=== PATIENT | female | born 1995 | race Caucasian/White ===

== ENCOUNTER 2024-08-28 14:19 | Outpatient (CLI) | payer BC, SELFPAY ==
--- NOTE | ~2024-08-28 | US_ITS ---
Pelvic ultrasound. Clinical History: First trimester , psoas dates and viability Technique: Realtime transabdominal and transvaginal scanning of the pelvis was performed. Color flow Doppler and Doppler spectral analysis were performed. Findings: The uterus is anteverted, and contains an intrauterine gestation with crown-rump length of 2.4 cm corresponds to an estimated gestational age of 9 weeks 1 day. heart rate is 163 bpm.. Neither ovary seen. No adnexal mass seen. There is no evidence of free fluid in the cul de sac. Impression: Live intrauterine gestation, with estimated gestational age of 9 weeks 1 day. heart rate is 163 bpm. Sonographic VINNY is 04/01/2025. Reviewed, dictated and finalized at location M. Impression: Live intrauterine gestation, with estimated gestational age of 9 weeks 1 day. F etal heart rate is 163 bpm. Sonographic VINNY is 04/01/2025.
== END 2024-08-28 14:20 | disposition home or self-care (01) ==
LOC: MICIMG 14:20
PROVIDERS: PCP Nurse Practitioner; Visit Provider Nurse Practitioner
DX: O36.80X0 Pregnancy with inconclusive fetal viability, not applicable or unspecified (principal); Z3A.00 Weeks of gestation of pregnancy not specified
CPT/HCPCS: 76801

== ENCOUNTER 2024-11-07 15:37 | Outpatient (CLI) | payer BC, SELFPAY ==
--- NOTE | ~2024-11-07 | US_ITS ---
EXAMINATION: US OB /maternal detail DATE: 11/08/2024 21:45 CDT INDICATION: Anatomy scan TECHNIQUE: Real-time transabdominal obstetric ultrasound. FINDINGS: 1 para 0 There is a single intrauterine gestation in variable presentation. The placenta is anterior. The tip of the placenta ranges from 4.2 cm to 5.6 cm away from the internal cervical os, as measured on the submitted images. The cervix measures 3.6 cm in length. cardiac activity and movement is noted with a heart rate of 161 beats per minute. Anatomic parameters are as follows The bladder is visualized and is unremarkable. A three-vessel cord is present. The cord inserts on the midline. Bilateral kidneys are present without hydronephrosis. The diaphragm is continuous. The cervical, thoracic and lumbar spines are covered in their entirety. The falx is visualized. choroid plexus is visualized (on cine views), and is unremarkable. Poor visualization of the lateral ventricles. Poor visualization of the cerebellum for which repeat examination is recommended. The cisterna magna measures 3.2 mm in anterior to posterior dimension (normal measurement is 2 to 10 mm). The nuchal fold measures 2.3 mm (greater than 6 mm is considered abnormal). Cine of the four-chamber heart is visualized and is anatomic. Both the right and left ventricular outflow tracts are identified and are unremarkable. Evaluation of the arms, hands, legs and feet were performed and appear grossly unremarkable. The upper lip and nose are continuous. The following biometric data were obtained: Biparietal diameter (BPD): 4.6 cm; head circumference (HC): 17.9 cm; abdominal circumference (AC): 16.1 cm; femur length (FL): 3.5 cm. These measurements are concordant. Estimated weight is 389.5 g +/- 58 g, which correlates with the greater than 97th percentile wh en 03/23/2025 is used as estimated date of delivery. As single measurements, these parameters are each equal to the following estimated gestational ages: BPD: 20 weeks 0 days. HC: 20 weeks 2 days. AC: 21 weeks 1 day. FL: 21 weeks 0 days. estimated gestational age based solely on measurements from this exam is 20 weeks 4 days +/- 1 week 3 days. IMPRESSION: Single intrauterine gestation with an approximate gestational age of 20 weeks and 4 days. Estimated d ue date by ultrasound is 03/23/2025. Poor visualization of the cerebellum and the lateral ventricles, for which repeat examination i s recommended. Reviewed, dictated and finalized at location A. IMPRESSION: Single intrauterine gestation with an approximate gestational age of 20 weeks a nd 4 days. Estimated due date by ultrasound is 03/23/2025. Poor visualization of the cerebellum and the lateral ventricles, for whic h repeat examination is recommended.
== END 2024-11-07 15:38 | disposition home or self-care (01) ==
LOC: MICIMG 15:38
PROVIDERS: PCP Obstetrics & Gynecology Gynecology; Visit Provider Obstetrics & Gynecology Gynecology
DX: Z36.9 Encounter for antenatal screening, unspecified (principal)
CPT/HCPCS: 76805

== ENCOUNTER 2024-11-24 09:58 | Outpatient (CLI) | payer BC, SELFPAY ==
[2024-11-24 10:10] VITALS: BMI 34.0
[2024-11-24 10:34] VITALS: BP 117/63; PULSE 76
[2024-11-24 10:46] VITALS: BP 114/55; PULSE 78
[2024-11-24 10:55] LABS: Basophils Absolute Auto 0.1 K/mm3 (0.0-0.1); Basophils Percent Auto 0.5 % (0.2-1.2); Eosinophils Absolute Auto 0.4 K/mm3 (0-0.3); Eosinophils Percent Auto 3.6 % (0-4.4); Hematocrit 38.1 % (37.0-47.0); Hemoglobin 12.2 g/dL (12.0-15.0); Immature Granulocyte Percent A 0.8 % (0-0.5); Lymphocytes Absolute Auto 2.25 K/mm3 (0.9-3.2); Mean Corpuscular Hemoglobin 28.2 pg (26-34); Mean Corpuscular Volume 88.2 fl (80-100); Monocytes Absolute Auto 0.8 K/mm3 (0.1-0.6); Monocytes Percent Auto 6.6 % (2.6-8.5); Neutrophils Absolute Auto 8.2 K/mm3 (1.3-6.7); Neutrophils Percent Auto 69.5 % (45.5-73.1); Platelet Count Result 315 k/mm3 (150-375); Red Blood Count 4.32 M/mm3 (4.2-5.4); Red Cell Distribution Width 12.7 % (11.5-14.5); White Blood Count 11.9 K/mm3 (4.5-10.0)
[2024-11-24 11:01] VITALS: BP 108/63; PULSE 75
[2024-11-24 11:05] LABS: Alanine Aminotransferase 16 U/L (6-35); Albumin Level 3.8 g/dL (3.5-5.1); Alkaline Phosphatase 83 U/L (38-126); Anion Gap 9 mmol/L (4-12); Aspartate Amino Transferase 22 U/L (14-36); Bilirubin,Total 0.2 mg/dL (0.2-1.3); Blood Urea Nitrogen 9 mg/dL (7-17); Calcium 9.3 mg/dL (8.4-10.2); Carbon Dioxide 20 mmol/L (22-30); Chloride 107 mmol/L (98-107); Estimated Glomerular Filt Rate > 60; Glucose 93 mg/dL (65-110); Sodium 136 mmol/L (137-145); Uric Acid 3.4 mg/dL (2.5-7.5)
[2024-11-24 11:07] LABS: Add Urine Microscopic? YES; Appearance Urine Clear (Clear); Bacteria Urine 1+ /hpf; Bilirubin Urine Negative (Negative); Blood Urine Negative (Negative); Color Urine Yellow (Yellow); Glucose Urine UA Negative (Negative); Ketones Urine Negative (Negative); Leukocyte Esterase Ur 1+ LEU/UL (Negative); Need Manual Microscopic Reviewed; Nitrate Urine Negative (Negative); Non Pathogenic Casts 0-2; Protein Urine Negative (Negative); RBC Urine 0-2 /hpf (0-2); Specific Grav Ur 1.017 (1.001-1.035); Squamous Epithelial Cell Urine Occasional /hpf (Few); WBC Urine 0-5 /hpf (0-3); pH Urine 6.5 (5.0-9.0)
[2024-11-24 11:16] VITALS: BP 110/49; PULSE 78
[2024-11-24 11:17] LABS: Creatinine Urine 82.2 mg/dL
[2024-11-24 11:23] LABS: Total Protein Urine Random < 5 mg/dL; Ur Ttl Prot Creatinine Ratio < 0.06 mg/mg (0-0.20)
--- NOTE | 2024-11-24 12:30 | PC.NURSE ---
[phone]-paged Dr. Tavera [phone]- paged Dr. Tavera.
--- NOTE | 2024-11-24 12:34 | PC.NURSE ---
Called Dr. Tavera with lab results and pt status. Pt states she saw spots in her vision yesterday x1 for 30-45 mins with none since. September D/C home.
== END 2024-11-24 12:38 | disposition home or self-care (01) ==
LOC: ANHOBOP 10:08 → ANHOBPP 10:19
PROVIDERS: Visit Provider Obstetrics & Gynecology Gynecology
DX: O13.9 Gestational [pregnancy-induced] hypertension without significant proteinuria, unspecified trimester (principal); Z3A.00 Weeks of gestation of pregnancy not specified
CPT/HCPCS: 36415; 80053; 81001; 82570; 84156; 84550; 85025; 87086; 99199

== ENCOUNTER 2025-03-06 15:43 | Outpatient (CLI) | payer BC, SELFPAY ==
[2025-03-06] VITALS (7 sets, daily range): BP systolic 111–122; BP diastolic 56–77; PULSE 65–81; BMI 42.2
--- OUTSIDE RECORDS SUMMARY | 2025-03-06 15:48 | XMS_ITS ---
Author Organization [facility] (ClinicalSummary Clone) Address Unknown Care Team Providers Care Car Changer Name Role Phone Unavailable Primary Care Physician Unavailab le Results * [[facility]] ANEUPLOIDY NIPT Performed by: [employer] Component Value Range Date Fraction 10.3% 10/09/2024 02 :32 am [facility] Sex Chromosome Aneuploidy NOT DETECTED 02:32 am [facility] Monosomy X LOW RISK <1 in 10,000 2024 02:32 am [facility] Trisomy 13 LOW RISK <1 in 10,000 2024 02:32 am [facility] Trisomy 18 LOW RISK <1 in 10,000 2024 02:32 am [facility] Trisomy 21 LOW RISK <1 in 10,000 2024 02:32 am [place] Sex MALE 10/09/2024 02:3 2 am [place] Gestation MCELROY 10/10/19 02:32 am [facility] For detailed report, see PDF See PDF 10/09/2024 02:32 am UTC 10/09/2024 02:3 2 am [facility] Social History Observation Value Start Date End Date
[2025-03-06 16:47] LABS: Hematocrit 37.2 % (37.0-47.0); Hemoglobin 11.6 g/dL (12.0-15.0); Immature Granulocyte Percent A 0.7 % (0-0.5); Lymphocytes Absolute Auto 2.31 K/mm3 (0.9-3.2); Mean Corpuscular HGB Conc 31.2 g/dl (32-36); Mean Corpuscular Hemoglobin 26.7 pg (26-34); Mean Corpuscular Volume 85.7 fl (80-100); Nucleated Red Blood Cells Absolute Auto 0.000 K/mm3 (0.0-0.012); Nucleated Red Blood Cells Perc 0.0 % (0.0-0.2); Platelet Count Result 318 k/mm3 (150-375); Red Blood Count 4.34 M/mm3 (4.2-5.4); White Blood Count 14.5 K/mm3 (4.5-10.0)
[2025-03-06 17:05] LABS: Add Urine Microscopic? NO; Appearance Urine Clear (Clear); Glucose Urine UA Negative (Negative); Leukocyte Esterase Ur Negative LEU/UL (Negative); Nitrate Urine Negative (Negative); Specific Grav Ur 1.017 (1.001-1.035)
[2025-03-06 17:09] LABS: Alanine Aminotransferase 12 U/L (6-35); Albumin Level 3.7 g/dL (3.5-5.1); Alkaline Phosphatase 171 U/L (38-126); Anion Gap 8 mmol/L (4-12); Aspartate Amino Transferase 27 U/L (14-36); Bilirubin,Total 0.4 mg/dL (0.2-1.3); Blood Urea Nitrogen 10 mg/dL (7-17); Calcium 9.1 mg/dL (8.4-10.2); Carbon Dioxide 21 mmol/L (22-30); Chloride 105 mmol/L (98-107); Estimated CRCL calculation 135 ml/min; Estimated Glomerular Filt Rate > 60; Glucose 70 mg/dL (65-110); Potassium 4.2 mmol/L (3.4-5.0); Sodium 134 mmol/L (137-145); Total Protein 7.2 g/dL (6.3-8.2); Uric Acid 5.6 mg/dL (2.5-7.5)
[2025-03-06 17:17] LABS: Total Protein Urine Random < 5 mg/dL; Ur Ttl Prot Creatinine Ratio < 0.06 mg/mg (0-0.20)
== END 2025-03-06 17:30 | disposition home or self-care (01) ==
LOC: ANHOBOP 15:47 → ANHOBPP 15:49
PROVIDERS: Visit Provider Obstetrics & Gynecology Gynecology
DX: O13.9 Gestational [pregnancy-induced] hypertension without significant proteinuria, unspecified trimester (principal); Z3A.00 Weeks of gestation of pregnancy not specified
CPT/HCPCS: 36415; 59025; 80053; 81003; 82570; 84156; 84550; 85025; 99199

== ENCOUNTER 2025-03-07 16:35 | Outpatient (CLI) | payer BC, SELFPAY ==
--- OUTSIDE RECORDS SUMMARY | 2025-03-07 16:48 | XMS_ITS | Clinical Summary ---
Author Organization [facility] Address [address] [facility] [address] [place] [phone] Phone Care Team Providers Care Status Controller Name Role Phone Jana Tavera MD Unavailable [phone] Rylie Valle NP Primary Care Provider [phone] Allergies Active Allergy Reactions Criticality Noted Date Comments Amoxicillin-Pot Clavulanate Hives Medium 07/06/2020 Codeine Shortness of breath Reaction: Trouble Breathing, Phentermine-Topiramate Other (See comments) Low Panic attack Medications ergocalciferol, vitamin D2, 50 mcg (2,000 unit) tablet Take by mouth Active cyanocobalamin (Vitamin B-12) 1,000 mcg tablet Take 1 tablet (1,000 mcg total) by mouth daily Active tirzepatide (MOUNJARO) 2.5 mg/0.5 mL pen injector Inject 0.5 mL (2.5 mg total) under the skin every 7 days Active dextroamphetamine- amphetamine XR (ADDERALL XR) 25 mg 24 hr capsuleIndications :Attention deficit hyperactivity disorder (ADHD), combined type Take 1 capsule (25 mg total) by mouth every morning 30 capsule 5 Active clobetasoL (TEMOVATE) 0.05 % external solutionIndication s:Psoriasis, unspecified Apply topically daily as needed (psoriasis) 50 mL 3 5 Active triamcinolone (KENALOG) 0.1 % creamIndications:P soriasis, unspecified APPLY TOPICALLY TO THE AFFECTED AREA 1 TO 2 TIMES DAILY NEEDED 15 g 3 5 Active busPIRone (BUSPAR) 15 mg tabletIndications: Generalized anxiety disorder Take 1 tablet (15 mg total) by mouth daily as needed (Anxiety) 90 tablet 3 5 Active valACYclovir (VALTREX) 1 gram tabletIndications: Recurrent cold sores TAKE 2 TABLETS(2000 MG) BY MOUTH TWICE DAILY FOR 1 DAY 4 tablet 3 5 Active Active Problems Problem Noted Date Diagnosed Date Psoriasis, unspecified 07/11/2024 Assessment & Plan (07/11/2024 7:59 AM COMPUTER NETWORK SUPPORT SPECIALIST): -chronic, stable -Discussed/ordered labs -continue on clobetasol 0.05% daily as needed on the scalp and triamcinolone 0.1% 1-2 times daily as needed it on the hands and elbows -Patient is no longer seeing Dermatology Dizzy 01/16/2024 Assessment & Plan (03/10/2024 2:23 PM CDT): -resolved -likely related to Mounjaro 5 mg weekly dosing when patient was not eating enough calories every day -follow up as needed Assessment & Plan (01/16/2024 2:22 PM CDT): -improving -likely related to Mounjaro 5 mg weekly dosing where patient was not eating enough calories every day -orthostatic blood pressures normal in office today -lab work ordered today -advised patient to increase water intake -advised patient to eat 3 meals a day with enough calories -follow up if this worsens 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 Assessment & Plan (07/11/2024 7:09 AM COMPUTER NETWORK SUPPORT SPECIALIST): -chronic, stable -Continue on valacyclovir 1 g 2 tablets twice daily for 1 day as needed Assessment & Plan (01/16/2024 2:21 PM CDT): -chronic, not at/near goal- patient had a recent outbreak that did not improve with the valacyclovir 1 g -increase to valacyclovir 1 g 2 tablets twice daily for 1 day Assessment & Plan (08/23/2023 10:12 AM CDT): -chronic, improving- patient had a recent outbreak -continue on valacyclovir 1 g daily for 5 days at 1st sign of outbreak Attention deficit hyperactiv ity disorder (ADHD), combined type 07/06/2022 Assessment & Plan (07/11/2024 7:09 AM COMPUTER NETWORK SUPPORT SPECIALIST): -chronic, stable -continue on adderall XR 25 mg daily Assessment & Plan (03/10/2024 2:22 PM CDT): -chronic, improving -continue on adderall XR 25 mg daily -follow up in 4 months for annual physical or sooner as needed Assessment & Plan (01/16/2024 2:20 PM CDT): -chronic, not at goal- patient has been feeling irritable -decrease to adderall XR 25 mg daily -follow up in 6 weeks or sooner as needed Assessment & Plan (08/23/2023 10:11 AM CDT): -chronic, stable -continue on adderall XR 25-30 mg daily (depending on what is in stock in the pharmacy). Assessment & Plan (06/13/2023 9:06 AM COMPUTER NETWORK SUPPORT SPECIALIST): -chronic, improving, but not at goal -Discussed/ordered labs -advised patient to continue on adderrall XR 20 mg every morning and let me know when she is out of this prescription and I will start her on Adderall XR 30 mg every morning Assessment & Plan (02/02/2023 8:03 AM CDT): Chronic problem-not at/near goal-poorly controlled at this time due to the patient being unable to obtain new refill on Adderall XR due to her insurance not covering We will stop the Adderall at this time and trial Wellbutrin Ordered Wellbutrin XL 150 mg -patient instructed to take 1 tablet by mouth every morning Patient educated on medication and side effects Follow-up in 3 weeks-to evaluate effectiveness of medication. Patient informed that if the medication is working but she feels that it may not be enough we will increase to 300 mg daily on week 5 Assessment & Plan (11/14/2022 3:01 PM CDT): -chronic, not at/near goal -patient states she recently picked up her new script of Adderall -advised patient to let me know at least 48 hours in advance of when she is due for her next refill and I will increase the Adderall XR to 30 mg daily. -follow up in 2 months Assessment & Plan (07/06/2022 8:20 AM COMPUTER NETWORK SUPPORT SPECIALIST): HPI: Condition is stable A&P: Discussed/ordered labs, encouraged healthy, low carbohydrate lifestyle and at least 150min/week of exercise, continue on adderall XR 20 mg daily. Polycystic ovarian syndrome 07/06/2022 Assessment & Plan (07/11/2024 7:50 AM COMPUTER NETWORK SUPPORT SPECIALIST): -chronic, stable -Continue seeing tool and fixture repairer Dr. Tavera. -reports she stopped taking the metformin and junel birthcontrol Assessment & Plan (06/13/2023 9:08 AM COMPUTER NETWORK SUPPORT SPECIALIST): -chronic, Condition is stable -Continue seeing tool and fixture repairer Dr. Tavera. -Continue on metformin XR 500 mg twice daily and junel control. -patient's insurance no longer covers Saxenda -start on Wegovy 0.25 mg injection weekly for weight loss. Patient denies personal/family history of pancreatitis or medullary thyroid cancer Assessment & Plan (02/02/2023 8:01 AM CDT): Chronic problem-worsening Patient is reporting a 5 lb weight gain since her last visit, reports her weight this morning was 219 lb Unable to obtain Liraglutide-patient waiting for a prior Auth to be done Following tool and fixture repairer Dr. Tavera-encouraged to follow-up as scheduled Continue on metformin XR 500 mg b.i.d. and Junel control Assessment & Plan (07/06/2022 8:39 AM COMPUTER NETWORK SUPPORT SPECIALIST): HPI: Condition is stable A&P: Continue seeing tool and fixture repairer Dr. Tavera. Continue on metformin XR 500 mg twice daily, Liraglutide 3 mg daily, and junel control. Vitamin B12 deficiency 07/06/2022 Assessment & Plan (07/11/2024 7:59 AM COMPUTER NETWORK SUPPORT SPECIALIST): -chronic, unknown, no data to review at this time to make an evaluation -Discussed/ordered labs -continue on vitamin daily Assessment & Plan (06/13/2023 9:08 AM COMPUTER NETWORK SUPPORT SPECIALIST): -chronic, Condition is unknown, no data to review at this time to make an evaluation -Discussed/ordered labs -continue on vitamin b12 1,000 mcg daily. Assessment & Plan (07/06/2022 8:40 AM COMPUTER NETWORK SUPPORT SPECIALIST): HPI: Condition is unknown, no data to review at this time to make an evaluation A&P: Discussed/ordered labs, encouraged healthy, low carbohydrate lifestyle and at least 150min/week of exercise, continue on vitamin b12 1,000 mcg daily. Skin mole 02/13/2022 Overview (02/13/2022): multiple skin moles with a new right trunk mole. see dermatology. monthly home skin exam Generalized anxiety disorder 01/13/2022 Assessment & Plan (07/11/2024 7:09 AM COMPUTER NETWORK SUPPORT SPECIALIST): -chronic, stable -continue on buspirone 7.5 mg twice daily Patient reiterated no suicidal thoughts at this time; take medication as directed; contact 911 and go to the ER if becomes suicidal; discussed side effects of medication with patient; encouraged healthy diet and exericise; encouraged patient to see a counselor Assessment & Plan (08/23/2023 10:11 AM CDT): -chronic, stable -continue on buspirone 7.5 mg twice daily Patient reiterated no suicidal thoughts at this time; take medication as directed; contact 911 and go to the ER if becomes suicidal; discussed side effects of medication with patient; encouraged healthy diet and exericise; encouraged patient to see a counselor Assessment & Plan (07/06/2022 8:19 AM COMPUTER NETWORK SUPPORT SPECIALIST): Patient reiterated no suicidal thoughts at this time; take medication as directed; contact 911 and go to the ER if becomes suicidal; discussed side effects of medication with patient; encouraged healthy diet and exericise; encouraged patient to see a counselor HPI: Condition is stable A&P: Discussed/ordered labs, encouraged healthy, low carbohydrate lifestyle and at least 150min/week of exercise, continue on buspirone 7.5 mg twice daily and adderall XR 20 mg daily. Overweight (BMI 25.0-29.9) 07/29/2019 Assessment & Plan (07/11/2024 7:48 AM COMPUTER NETWORK SUPPORT SPECIALIST): -chronic, stable goal BMI <30 Healthy, high-protein, lower carbohydrate, lower fat lifestyle and exercise for 150min/week recommended Recommend tracking everything you put in your mouth on an donna like [employer] -Patient has been taking tirzepatide injections 2.5 mg weekly with [employer]. Hand Measurements: A fist or cupped hand = 1 cup 1 cup = 1 -2 servings of fruit juice 1 oz. of cold cereal 2 oz. of cooked cereal, rice or pasta 8 oz. of milk or yogurt A thumb = 1 oz. of cheese Consuming low-fat cheese helps you meet the required servings from the milk, yogurt and cheese group. 1 oz. of low-fat cheese counts as 8 oz. of milk or yogurt. Handful = 1-2 oz. of snack food Thumb tip = 1 teaspoon Keep high-fat foods, such as peanut butter and mayonnaise, at a minimum. One teaspoon is equal to the end of your thumb, from the knuckle up. Three teaspoons equals 1 tablespoon. Palm = 3 oz. of meat Choose lean poultry, fish, shellfish and beef. One palm size portion equals 3 oz. for an adult and 1 -2 oz. for a child under 5. 1 tennis ball or a fist= 1/2 cup of fruit and vegetables Healthy diets include a variety of colorful fruits and vegetables every day. The secret to serving size is in your hand. Snacking can add up. Because hand sizes vary, compare your fist size to an actual measuring cup. Assessment & Plan (03/10/2024 2:22 PM CDT): -chronic, stable goal BMI <30 Healthy, high-protein, lower carbohydrate, lower fat lifestyle and exercise for 150min/week recommended Recommend tracking everything you put in your mouth on an donna like [employer] -Patient has been taking tirzepatide injections 2.5 mg weekly with [employer]. Hand Measurements: A fist or cupped hand = 1 cup 1 cup = 1 -2 servings of fruit juice 1 oz. of cold cereal 2 oz. of cooked cereal, rice or pasta 8 oz. of milk or yogurt A thumb = 1 oz. of cheese Consuming low-fat cheese helps you meet the required servings from the milk, yogurt and cheese group. 1 oz. of low-fat cheese counts as 8 oz. of milk or yogurt. Handful = 1-2 oz. of snack food Thumb tip = 1 teaspoon Keep high-fat foods, such as peanut butter and mayonnaise, at a minimum. One teaspoon is equal to the end of your thumb, from the knuckle up. Three teaspoons equals 1 tablespoon. Palm = 3 oz. of meat Choose lean poultry, fish, shellfish and beef. One palm size portion equals 3 oz. for an adult and 1 -2 oz. for a child under 5. 1 tennis ball or a fist= 1/2 cup of fruit and vegetables Healthy diets include a variety of colorful fruits and vegetables every day. The secret to serving size is in your hand. Snacking can add up. Because hand sizes vary, compare your fist size to an actual measuring cup. Assessment & Plan (01/16/2024 2:20 PM CDT): -chronic, improving goal BMI <30 Healthy, high-protein, lower carbohydrate, lower fat lifestyle and exercise for 150min/week recommended Recommend tracking everything you put in your mouth on an donna like [employer] -Patient has been taking tirzepatide injections 2.5 mg weekly with a [employer] [facility]. Patient tried a 5 mg dosage, but this made her dizzy because she was not eating enough Hand Measurements: A fist or cupped hand = 1 cup 1 cup = 1 -2 servings of fruit juice 1 oz. of cold cereal 2 oz. of cooked cereal, rice or pasta 8 oz. of milk or yogurt A thumb = 1 oz. of cheese Consuming low-fat cheese helps you meet the required servings from the milk, yogurt and cheese group. 1 oz. of low-fat cheese counts as 8 oz. of milk or yogurt. Handful = 1-2 oz. of snack food Thumb tip = 1 teaspoon Keep high-fat foods, such as peanut butter and mayonnaise, at a minimum. One teaspoon is equal to the end of your thumb, from the knuckle up. Three teaspoons equals 1 tablespoon. Palm = 3 oz. of meat Choose lean poultry, fish, shellfish and beef. One palm size portion equals 3 oz. for an adult and 1 -2 oz. for a child under 5. 1 tennis ball or a fist= 1/2 cup of fruit and vegetables Healthy diets include a variety of colorful fruits and vegetables every day. The secret to serving size is in your hand. Snacking can add up. Because hand sizes vary, compare your fist size to an actual measuring cup. Assessment & Plan (08/23/2023 10:10 AM CDT): HPI: Condition is improving, but not at goal goal BMI <30 A&P: Healthy, high-protein, lower carbohydrate, lower fat lifestyle and exercise for 150min/week recommended Recommend tracking everything you put in your mouth on an donna like [employer] -Patient has been taking tirzepatide injections 2.5 mg weekly with a med spa Hand Measurements: A fist or cupped hand = 1 cup 1 cup = 1 -2 servings of fruit juice 1 oz. of cold cereal 2 oz. of cooked cereal, rice or pasta 8 oz. of milk or yogurt A thumb = 1 oz. of cheese Consuming low-fat cheese helps you meet the required servings from the milk, yogurt and cheese group. 1 oz. of low-fat cheese counts as 8 oz. of milk or yogurt. Handful = 1-2 oz. of snack food Thumb tip = 1 teaspoon Keep high-fat foods, such as peanut butter and mayonnaise, at a minimum. One teaspoon is equal to the end of your thumb, from the knuckle up. Three teaspoons equals 1 tablespoon. Palm = 3 oz. of meat Choose lean poultry, fish, shellfish and beef. One palm size portion equals 3 oz. for an adult and 1 -2 oz. for a child under 5. 1 tennis ball or a fist= 1/2 cup of fruit and vegetables Healthy diets include a variety of colorful fruits and vegetables every day. The secret to serving size is in your hand. Snacking can add up. Because hand sizes vary, compare your fist size to an actual measuring cup. Assessment & Plan (06/13/2023 9:06 AM COMPUTER NETWORK SUPPORT SPECIALIST): HPI: Condition is not at/near goal goal BMI <30 A&P: Healthy, high-protein, lower carbohydrate, lower fat lifestyle and exercise for 150min/week recommended Recommend tracking everything you put in your mouth on an donna like [employer] -start on Wegovy 0.25 mg injection weekly for weight loss. Patient denies personal/family history of pancreatitis or medullary thyroid cancer Hand Measurements: A fist or cupped hand = 1 cup 1 cup = 1 -2 servings of fruit juice 1 oz. of cold cereal 2 oz. of cooked cereal, rice or pasta 8 oz. of milk or yogurt A thumb = 1 oz. of cheese Consuming low-fat cheese helps you meet the required servings from the milk, yogurt and cheese group. 1 oz. of low-fat cheese counts as 8 oz. of milk or yogurt. Handful = 1-2 oz. of snack food Thumb tip = 1 teaspoon Keep high-fat foods, such as peanut butter and mayonnaise, at a minimum. One teaspoon is equal to the end of your thumb, from the knuckle up. Three teaspoons equals 1 tablespoon. Palm = 3 oz. of meat Choose lean poultry, fish, shellfish and beef. One palm size portion equals 3 oz. for an adult and 1 -2 oz. for a child under 5. 1 tennis ball or a fist= 1/2 cup of fruit and vegetables Healthy diets include a variety of colorful fruits and vegetables every day. The secret to serving size is in your hand. Snacking can add up. Because hand sizes vary, compare your fist size to an actual measuring cup. Assessment & Plan (02/02/2023 8:05 AM CDT): Chronic [id number] reported by patient she had a 5 lb weight gain Has not started Saxenda yet, patient states she is waiting on prior authorization to see if her insurance will cover Recommend heart healthy [id number], low-calorie, low carb Portion control would be beneficial Encouraged to increase activity to 30 min/day, 150 min/week Recommend keeping a food journal Assessment & Plan (11/14/2022 2:57 PM CDT): HPI: Condition is not at/near goal goal BMI <30 A&P: Healthy, high-protein, lower carbohydrate, lower fat lifestyle and exercise for 150min/week recommended Recommend tracking everything you put in your mouth on an donna like [employer] -continue on liraglutide 3 mg daily injection. Hand Measurements: A fist or cupped hand = 1 cup 1 cup = 1 -2 servings of fruit juice 1 oz. of cold cereal 2 oz. of cooked cereal, rice or pasta 8 oz. of milk or yogurt A thumb = 1 oz. of cheese Consuming low-fat cheese helps you meet the required servings from the milk, yogurt and cheese group. 1 oz. of low-fat cheese counts as 8 oz. of milk or yogurt. Handful = 1-2 oz. of snack food Thumb tip = 1 teaspoon Keep high-fat foods, such as peanut butter and mayonnaise, at a minimum. One teaspoon is equal to the end of your thumb, from the knuckle up. Three teaspoons equals 1 tablespoon. Palm = 3 oz. of meat Choose lean poultry, fish, shellfish and beef. One palm size portion equals 3 oz. for an adult and 1 -2 oz. for a child under 5. 1 tennis ball or a fist= 1/2 cup of fruit and vegetables Healthy diets include a variety of colorful fruits and vegetables every day. The secret to serving size is in your hand. Snacking can add up. Because hand sizes vary, compare your fist size to an actual measuring cup. Assessment & Plan (07/06/2022 8:38 AM COMPUTER NETWORK SUPPORT SPECIALIST): HPI: Condition is not at/near goal goal BMI <30 A&P: Healthy, high-protein, lower carbohydrate, lower fat lifestyle and exercise for 150min/week recommended Recommend tracking everything you put in your mouth on an donna like [employer] Patient uses liraglutide 3 mg daily injection. Patient has used wegovy in the past, but it did not help with her weight loss. Hand Measurements: A fist or cupped hand = 1 cup 1 cup = 1 -2 servings of fruit juice 1 oz. of cold cereal 2 oz. of cooked cereal, rice or pasta 8 oz. of milk or yogurt A thumb = 1 oz. of cheese Consuming low-fat cheese helps you meet the required servings from the milk, yogurt and cheese group. 1 oz. of low-fat cheese counts as 8 oz. of milk or yogurt. Handful = 1-2 oz. of snack food Thumb tip = 1 teaspoon Keep high-fat foods, such as peanut butter and mayonnaise, at a minimum. One teaspoon is equal to the end of your thumb, from the knuckle up. Three teaspoons equals 1 tablespoon. Palm = 3 oz. of meat Choose lean poultry, fish, shellfish and beef. One palm size portion equals 3 oz. for an adult and 1 -2 oz. for a child under 5. 1 tennis ball or a fist= 1/2 cup of fruit and vegetables Healthy diets include a variety of colorful fruits and vegetables every day. The secret to serving size is in your hand. Snacking can add up. Because hand sizes vary, compare your fist size to an actual measuring cup. Vitamin D deficiency Assessment & Plan (07/11/2024 7:59 AM COMPUTER NETWORK SUPPORT SPECIALIST): -chronic, unknown, no data to review at this time to make an evaluation -Discussed/ordered labs -continue on vitamin daily Assessment & Plan (06/13/2023 9:08 AM COMPUTER NETWORK SUPPORT SPECIALIST): -chronic, Condition is unknown, no data to review at this time to make an evaluation -Discussed/ordered labs -continue on vitamin D 2000 units daily Assessment & Plan (07/06/2022 8:38 AM COMPUTER NETWORK SUPPORT SPECIALIST): HPI: Condition is unknown, no data to review at this time to make an evaluation A&P: Discussed/ordered labs, encouraged healthy, low carbohydrate lifestyle and at least 150min/week of exercise, continue on vitamin D2 2000 units daily Estimated Date of Delivery Comme nts Yes 04/04/2025 Resolved Problems Problem Noted Date Diagnosed Date Resolved Date Attention deficit disorder 01/13/2022 0 02/13/2022 Morbid obesity with BMI of 40.0-44.9, adult 01/08/2021 06/15/2021 Recurrent UTI 01/30/2017 07/06/2022 Assessment & Plan (01/30/2017 8:20 PM CDT): Currently without symptoms despite her urine being positive today. Will send for culture. If culture negative-will arrange US of kidneys. Obesity (BMI 30-39.9) 01/30/20172022 Assessment & Plan (01/30/2017 8:20 PM CDT): Obesity is unchanged. Discussed the patient's BMI. The BMI is above average; BMI management plan is completed. General weight loss/lifestyle modification strategies discussed (elicit support from others; identify saboteurs; non-food rewards, etc). Jaw pain 09/09/2014 08/10/2021 Overview (08/31/2016): Jaw pain Encounters Date Type Department Care Team Description 02/04/2025 2:00 PM CDT Ancillary Procedure [facility] [address] [facility] [address] [place] [id number] Maternal care for excessive growth, third trimester, not applicable or unspecified from Last 3 Months Immunizations Immunization Administration Dates Next Due DTaP, Unspecified 12/17/1998, 6,07/15/1994,04/28,02/24/1994 Flucelvax Influenza Quad 04/05/2019 HPV, Quadrivalent 12/15/2011,03/07/2011 HPV, Unspecified 12/15/2010 Hep A, Unspecified 2007,01/15/2007 Hep B, Unspecified 07/15/1994,01/27/1994, 994 HiB 03/31/1995,04/28/1994,02/24/1994 Influenza, Quadrivalent, Spl it, Preservative Free, Intramuscular 06/13/2023,02/13/2022,03/15/2021 Influenza, Trivalent, Preser vative Free, Intramuscular 03/10/2024 Influenza, Unspecified 03/28/2020 Meningococcal ACWY, Unspecified 01/15/2007 Meningococcal Conjugate (Menveo) 12/15/2011 Moderna SARS-CoV-2 Monovalen t Vaccination (12+ YRS) 04/03/2021,03/29/2021 Polio, Unspecified 12/17/1998, 6,04/28/1994,02/24 Tdap 06/03/2019,01/15/2007 Varicella 2007 Surgical History Surgery Date Site/Laterality Comments NO PAST SURGERIES Medical History Medical History Date Comments PCOS (polycystic ovarian syndrome) Vitamin D deficiency Anxiety Attention deficit disorder 01/13/2022 Family History Medical History Relation Name Comments Diabetes Father Yg Hyperlipidemia Father Yg Hyperlipidemi a; Hypertension Father Yg Other Father Yg Alive and well; /borderline diabetic; Heart disease Maternal Grandfather César Cancer Maternal Grandmother Mary Arthritis Mother Ana Hypertension Mother Ana Hypertension; Diabetes Mother's Brother Bharat Diabetes Other 1 Family history of Diabetes mellitus; Heart disease Other 2 Family history of Heart disease; Depression Paternal Grandmother Luna Mental illness Paternal Grandmother Luna Relation Name Status Comments Father Yg Alive Maternal Grandfather César Maternal Grandmother Mary Mother Ana Mother's Brother Bharat Other 1 Other 2 Paternal Grandmother Luna Social History Tobacco Use Types Packs/Day Years Used Date Smoking Tobacco: Never Smokeless Tobacco: Never Tobacco Cessation:Counseling Given: Not Answered Alcohol Use Standard Drinks/Week Comments Yes 0 (1 standard drink = 0.6 oz pur e alcohol) AUDIT-C Answer Date Recorded Q1: How often do you have a drink containing alc ohol? 2-4 times a month 07/11/2024 Q2: How many drinks containi ng alcohol do you have on a typical day when you are drinking? 3 or 4 07/11/2024 Q3: How often do you have si x or more drinks on one occasion? 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 Not on file Not on file Obstetrics History Para Term AB IAB SAB Ectopic Multiple Livin g Live Births 1 Date Outcome GA Total Labor Labor/2nd/3rd Weight Sex Type Anes PTL Candy A1 A5 Name Clin Current Last Filed Vital Signs Vital Sign Reading Time Taken Comments Blood Pressure 110/56 10/21/2024 11:52 AM CDT Pulse 74 10/21/2024 11:52 AM CDT Temperature 36.6 C (97.9 F) 10/21/2024 11:52 AM CDT Respiratory Rate 16 10/21/2024 11:52 AM CDT Oxygen Saturation 98% 10/21/2024 11:52 AM CDT Inhaled Oxygen Concentration - - Weight 99.3 kg (219 lb) 10/21/2024 11:52 AM CDT Height 171.2 cm (5' 7.4) 10/21/2024 11:52 AM CD T Body Mass Index 33.89 10/21/2024 11:52 AM CDT Plan of Treatment Health Maintenance Due Date Last Done Comments Cervical Cancer Screening 1993 Hepatitis C Screening 1993 Covid-19 Vaccine ( season) 2025 04/03/2021, 03/29/2021, 07/30/2020 Influenza Vaccine (#1) 2025 , 06/13/2023, 02/13/2022, Additional history exists Depression Screening 07/11/2025 07/11/2024, 03/10/2024, 01/16/2024, Additional history exists Regular Well Visit/Exam 18-64 07/11/2025 07/11/2024, 11/14/2022, 08/10/2021, Additional history exists DTaP/Tdap/Td Vaccine (8 - Td or Tdap) 06/03/2029 06/03/2019, 01/15/2007, 12/17/1998, Additional history exists Hepatitis B Screening Completed 07/15/1994 , 01/27/1994, 1993 Varicella Vaccines Discontinued 2007 HPV Vaccines Completed 12/15/2011, 02/25, 12/15/2010 Pneumococcal vaccine <65 Aged Out No longer eligible based on patient's age to complete this topic Procedures Procedure Name Priority Date/Time Associated Diagnosis Comments US OB FOLLOW UP Schedule Routine, Read Routine (OP Routine) 02/04/2025 2:15 PM CDT Maternal care for excessive growth, third trimester, not applicable or unspecified from Last 3 Months Results * US Ob Follow Up (02/04/2025 2:15 PM CDT) Anatomical Region Laterality Modality Abdomen N/A Ultrasound 02/11/2025 8:05 AM CDT Narrative 02/11/2025 8:10 AM CDT EXAM DESCRIPTION: US OB FOLLOW UP REASON FOR STUDY: maternal care for excessive growth Maternal care for excessive growth - check growth and genaro TECHNIQUE: Limited transabdominal grayscale ultrasound for obstetrical evaluation. COMPARISON: None. FINDINGS: Clinical age is 31 weeks 4 days with an VINNY 04/04/2025. Single intrauterine with cephalic presentation. Placenta is anterior with no demonstrated placenta previa. Amniotic fluid index 13.3 cm. heart rate 136 beats per minute. BPD is 8.89 cm corresponding to 36 weeks 0 days. HC is 31.13 cm corresponding to 34 weeks 6 days. AC is 30.36 cm corresponding to 34 weeks 2 days. FL is 6.40 cm corresponding to 33 weeks 0 days. The growth ratios are all in the normal range. The estimated age based on this ultrasound is 33 weeks 6 days with an VINNY 03/19/2025. Estimated weight 2368 g +/-355 g (5 pounds 4 ounces +/-13 ounces) which is at the 97th percentile. IMPRESSION: 1. Single intrauterine estimated at 33 weeks 6 days with an VINNY 03/19/2025. The clinical age is reported to be 31 weeks 4 days. 2. Estimated weight at the 97th percentile which reflects the discrepancy in dating. 3. The BPD does measure greater than the other growth measures although the growth ratios remain normal. 4. Amniotic fluid index 13.3 cm. THIS IS AN ELECTRONICALLY VERIFIED FINAL REPORT 02/11/2025 8:10 AM - Electronically signed by Fan Wolf M.D. CH: JUSTIN Report ID: [id number] Reading Location: [id number] Procedure Note Fan Wolf MD - 02/11/2025 EXAM DESCRIPTION: US OB FOLLOW UP REASON FOR STUDY: maternal care for excessive growth Maternal care for excessive growth - check growth and genaro TECHNIQUE: Limited transabdominal grayscale ultrasound for obstetrical evaluation. COMPARISON: None. FINDINGS: Clinical age is 31 weeks 4 days with an VINNY 04/04/2025. Single intrauterine with cephalic presentation. Placenta is anterior with no demonstrated placenta previa. Amniotic fluid index 13.3 cm. heart rate 136 beats per minute. BPD is 8.89 cm corresponding to 36 weeks 0 days. HC is 31.13 cm corresponding to 34 weeks 6 days. AC is 30.36 cm corresponding to 34 weeks 2 days. FL is 6.40 cm corresponding to 33 weeks 0 days. The growth ratios are all in the normal range. The estimated age based on this ultrasound is 33 weeks 6 days with an VINNY 03/19/2025. Estimated weight 2368 g +/-355 g (5 pounds 4 ounces +/-13 ounces)which is at the 97th percentile. IMPRESSION: 1. Single intrauterine estimated at 33 weeks 6 days with anEDD 03/19/2025. The clinical age is reported to be 31 weeks 4 days. 2. Estimated weight at the 97th percentile which reflects the discrepancy in dating. 3. The BPD does measure greater than the other growth measures althoughthe growth ratios remain normal. 4. Amniotic fluid index 13.3 cm. THIS IS AN ELECTRONICALLY VERIFIED FINAL REPORT 02/11/2025 8:10 AM - Electronically signed by Fan Wolf M.D. CH: Report ID: [id number] Reading Location: [place] [id number] us Isabella Godinez NP IMG OB US PROCEDURES Final Result from Last 3 Months Insurance [facility] CHOICE PLUS [facility] CHOICE PLUS ANTHEM ACCESS Care Teams Status Controller Relationship Specialty Start Date End Date Rylie Valle NP [address] [facility] [address] [place] [address] PCP - General Family Medicine 07/06/22 Jana Tavera MD [address] [place], [place] [id number] Referring Physician Gynecology 06/03/19
--- OUTSIDE RECORDS SUMMARY | 2025-03-07 16:48 | XMS_ITS ---
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 Component Value Range Date Fraction 7.9% 10/22/2024 04 :33 pm [facility] Cystic Fibrosis NIPT result LOW RISK 1 in 4500 10/22/2024 04:33 pm [facility] Sickle Cell Disease/Beta-Thalassemia/Hemo globinopathies carrier screen NEGATIVE 10/22/2024 04:33 pm [facility] Alpha-Thalassemia carrier screen NEGATIVE 10/22/2024 04:33 pm [facility] Cystic Fibrosis carrier screen POSITIVE [id number] 10/22/2024 04:33 pm [facility] Spinal Muscular Atrophy carrier screen NEGATIVE 2 SMN1 copies, SNP not present 10/22/2024 04:33 pm [facility] For detailed report, see PDF See PDF 10/22/2024 04:33 pm UTC 10/22/2024 04:3 3 pm [facility] Social History Observation Value Start Date End Date
[2025-03-07 16:49] VITALS: BMI 42.2
[2025-03-07 17:04] LABS: Total Volume 24 Hour Urine 1500 ml
[2025-03-07 17:09] LABS: Creatinine Clearance Urine 102.1 ml/min (75-125); Serum Creat 0.73
[2025-03-07 17:18] LABS: Total Protein Urine 24 Hr 75 mg/24hr (28-141); Total Protein Urine Random < 5 mg/dL
== END 2025-03-07 16:36 | disposition home or self-care (01) ==
LOC: ANHOBOP 16:46
PROVIDERS: Visit Provider Obstetrics & Gynecology Gynecology
DX: O12.10 Gestational proteinuria, unspecified trimester (principal); Z3A.00 Weeks of gestation of pregnancy not specified
CPT/HCPCS: 81050; 82575; 84156

== ENCOUNTER 2025-03-15 07:19 | Inpatient (IN) | payer BC, SELFPAY ==
[2025-03-15] VITALS (96 sets, daily range): BP systolic 76–149; BP diastolic 29–131; PULSE 60–138; TEMP 36.1–36.8; O2SAT 94–100; BMI 34.5
[2025-03-15 07:50] LABS: OBXCEM ROM Plus Positive (Negative)
--- NOTE | 2025-03-15 08:24 | LDADM ---
This patient, Kelly Calderon, was admitted to Labor/Delivery/Recovery 104 on 03/15/25 at 07:19. Plans for labor, pain management and were discussed with patient. Patient/family oriented to hospital policies and general routines including ID bracelet, bed and alarms, visiting hours, pain management, procedures, bathroom and other care routines, personal items, smoking policy, room service/diet and guest tray routines, infant security routines, and visiting hours. Patient/Family are encouraged to report perceived risks to care and to ask questions if they do not understand what they are told or what they should do. See OBIX for further documentation.
[2025-03-15 09:33] LABS: Hematocrit 36.0 % (37.0-47.0); Hemoglobin 11.7 g/dL (12.0-15.0); Immature Granulocyte Percent A 0.6 % (0-0.5); Lymphocytes Absolute Auto 2.36 K/mm3 (0.9-3.2); Mean Corpuscular HGB Conc 32.5 g/dl (32-36); Mean Corpuscular Hemoglobin 27.5 pg (26-34); Mean Corpuscular Volume 84.7 fl (80-100); Nucleated Red Blood Cells Absolute Auto 0.000 K/mm3 (0.0-0.012); Nucleated Red Blood Cells Perc 0.0 % (0.0-0.2); Platelet Count Result 290 k/mm3 (150-375); Red Blood Count 4.25 M/mm3 (4.2-5.4); White Blood Count 11.7 K/mm3 (4.5-10.0)
[2025-03-15] MEDS: OXYTOCIN 30 UNITS/NS 500 ML 30 UNITS/500 ML BAG IV CONT (09:50)
[2025-03-15] MEDS: LACTATED RINGERS 1,000 ML 125 ML IV CONT ×3 (09:50→16:27)
[2025-03-15 10:31] LABS: Syphilis IgG/IgM Antibody Non-Reactive (Nonreactive)
[2025-03-15 10:37] LABS: HIV 1/2 Ab P24 Ag Result Negative (Negative)
--- NOTE | 2025-03-15 12:24 | WPDANESEPPF ---
Anes - Initial Pre Proc Eval Procedure: labor epidural Date/Time: 03/15/25 12:24 Surgeon: Jana Tavera MD Pre Op Diagnosis: labor pain Pre Op Diagnosis: Rupture of Membranes Patient Data Age: 29 Gender: F Height: Weight: Last Vital Signs Temp 36.7 C 03/15/25 10:41 Pulse 77 03/15/25 12:01 BP 131/83 03/15/25 12:01 O2 Del Method Room Air 03/15/25 08:23 Allergies Allergy/AdvReac Type Severity Reaction Status Date / Time amoxicillin Allergy Mild Rash Verified 03/15/25 08:25 codeine Allergy Unknown Dyspnea / Verified 03/15/25 08:25 SOB Home Medications ?Medication ?Instructions ?Recorded ?Confirmed ?Type aspirin 81 mg tablet,delayed 81 mg PO DAILY 03/15/25 03/15/25 History release (Adult Aspirin Regimen) calcium phosphate,dibasic 77 tablet PO 03/15/25 History mg-vitamin D3 400 unit tablet cetirizine 10 mg tablet (24Hour 10 mg PO .nightly PRN allergy 03/15/25 03/15/25 History Allergy) symptoms vitamins no.102-iron 90 1 cap PO DAILY 03/15/25 03/15/25 History mg-folate 1 mg-dha 200 mg capsule Laboratory Tests 03/15/25 03/15/25 07:48 08:17 WBC 11.7 H K/mm3 (4.5-10.0) RBC 4.25 M/mm3 (4.2-5.4) Hgb 11.7 L g/dL (12.0-15.0) Hct 36.0 L % (37.0-47.0) MCV 84.7 fl (80-100) MCH 27.5 pg (26-34) MCHC 32.5 g/dl (32-36) RDW 13.3 % (11.5-14.5) Plt Count 290 k/mm3 (150-375) MPV 12.1 H fl (7.4-10.4) Immature Gran % (Auto) 0.6 H % (0-0.5) Neut % (Auto) 69.3 % (45.5-73.1) Lymph % (Auto) 20.1 % (18.3-44.2) Woodson % (Auto) 7.8 % (2.6-8.5) Eos % (Auto) 1.8 % (0-4.4) Baso % (Auto) 0.4 % (0.2-1.2) Lymph # (Auto) 2.36 K/mm3 (0.9-3.2) Woodson # (Auto) 0.9 H K/mm3 (0.1-0.6) Eos # (Auto) 0.2 K/mm3 (0-0.3) Baso # (Auto) 0.1 K/mm3 (0.0-0.1) Abs Immat Gran (auto) 0.07 H K/mm3 (0.00-0.031) Absolute Neuts (auto) 8.1 H K/mm3 (1.3-6.7) Absolute Nucleated RBC 0.000 K/mm3 (0.0-0.012) Nucleated RBC % 0.0 % (0.0-0.2) Membranes Rupture Rom plus positive (Negative) Syphilis IgG/IgM Ab Non-reactive (Nonreactive) HIV 1&2 Ab/P24 Ag 4thGn Negative (Negative) Blood Type A Positive Antibody Screen Negative Patient hx anesthesia problems: none Family hx anesthesia problems: none Results Review: All pre-operative results and documents have been reviewed as part of the pre-operative evaluation. [facility] Past Medical History Medical History (Updated 03/15/25 @ 12:25 by Jenae Regalado CRNA) ADHD Anxiety Psoriasis PCOS (polycystic ovarian syndrome) Social History Social History Smoking status: Never smoker Substance use: never Do You Feel Safe in your Home?: Yes Lack of Transportation: No Lack of Food: Never True Current Housing: I Have Housing Concerned About Future Housing: No Difficulty Paying Gas/Electric Bills: No Difficulty Paying for Meds: No Currently Unemployed: No Education: Trade/Vocational Certificate Difficulty w/ Childcare or Family Care: No Spiritual care concerns: No Anes - Eval Final PreProcedure Day of Procedure 03/15/25 12:24 Heart: regular rate and rhythm Lungs: clear to auscultation and normal air movement Airway: Mallampati scale class II Neurological: alert and oriented ASA classification: II Emergent: no Anesthetic plan: proceed Anesthesia type and monitoring: regional epidural and standard monitoring Results Review: All pre-operative results and documents have been reviewed as part of the pre-operative evaluation. Informed Consent: The patient's anesthetic plan and its attendant risks and benefits were discussed with the patient/family/POA. Questions were solicited and answers provided to the satisfaction of the patient/family/POA.
--- NOTE | 2025-03-15 13:44 | PM.IMHP ---
H&P: HPI History of Present Illness Date/Time: 03/15/25 13:44 Chief Complaint: Therese rupture membranes at term at 5:30 a.m. Narrative: This is a 29-year-old 1 para 0 with last menstrual period was 06/28/2024, EDC is 04/04/2025, presents at 37 and half weeks gestation with spontaneous rupture membranes prior to admission. She tells me the baby than the 97th percentile. She is negative for group B strep and passed her diabetic screening Review of Systems Review of Systems: All systems reviewed & are unremarkable except as noted in HPI and below PMFSH Past Medical History Medical History ADHD Anxiety Psoriasis PCOS (polycystic ovarian syndrome) Social History Social History Smoking status: Never smoker Substance use: never Do You Feel Safe in your Home?: Yes Lack of Transportation: No Lack of Food: Never True Current Housing: I Have Housing Concerned About Future Housing: No Difficulty Paying Gas/Electric Bills: No Difficulty Paying for Meds: No Currently Unemployed: No Education: Trade/Vocational Certificate Difficulty w/ Childcare or Family Care: No Spiritual care concerns: No Meds Home Medications and Allergies Home Medications ?Medication ?Instructions ?Recorded ?Confirmed ?Type aspirin 81 mg tablet,delayed 81 mg PO DAILY 03/15/25 03/15/25 History release (Adult Aspirin Regimen) calcium phosphate,dibasic 77 tablet PO 03/15/25 History mg-vitamin D3 400 unit tablet cetirizine 10 mg tablet (24Hour 10 mg PO .nightly PRN allergy 03/15/25 03/15/25 History Allergy) symptoms vitamins no.102-iron 90 1 cap PO DAILY 03/15/25 03/15/25 History mg-folate 1 mg-dha 200 mg capsule Allergies Allergy/AdvReac Type Severity Reaction Status Date / Time amoxicillin Allergy Mild Rash Verified 03/15/25 08:25 codeine Allergy Unknown Dyspnea / Verified 03/15/25 08:25 SOB Vital Signs Vital Signs - 24 hr 03/15/25 07:48 03/15/25 08:01 03/15/25 08:23 Temperature Pulse Rate 91 73 Blood Pressure 88/63 L 111/67 Pulse Oximetry Oxygen Delivery Room Air 03/15/25 09:01 03/15/25 09:16 03/15/25 09:31 Temperature Pulse Rate 90 97 91 Blood Pressure 122/70 117/74 121/72 Pulse Oximetry Oxygen Delivery 03/15/25 09:46 03/15/25 10:01 03/15/25 10:16 Temperature Pulse Rate 98 83 82 Blood Pressure 113/65 128/69 114/70 Pulse Oximetry Oxygen Delivery 03/15/25 10:31 03/15/25 10:41 03/15/25 10:47 Temperature 98.1 F Pulse Rate 86 77 Blood Pressure 117/66 102/43 L Pulse Oximetry Oxygen Delivery 03/15/25 11:02 03/15/25 11:05 03/15/25 11:17 Temperature Pulse Rate 73 73 71 Blood Pressure 98/39 L 132/70 117/66 Pulse Oximetry Oxygen Delivery 03/15/25 11:31 03/15/25 11:46 03/15/25 12:01 Temperature Pulse Rate 81 83 77 Blood Pressure 123/67 113/61 131/83 Pulse Oximetry Oxygen Delivery 03/15/25 12:31 03/15/25 12:46 03/15/25 13:02 Temperature Pulse Rate 103 H 93 101 H Blood Pressure 132/86 115/72 100/48 L Pulse Oximetry Oxygen Delivery 03/15/25 13:16 03/15/25 13:34 03/15/25 13:39 Temperature Pulse Rate 78 Blood Pressure 117/56 L Pulse Oximetry 99 99 Oxygen Delivery Exam Const: General: cooperative, healthy appearing, comfortable and well groomed Nutritional Appearance: overweight HENMT: Head: normal to inspection Resp: Effort & Inspection: normal respiratory effort Cardio: Rate: regular rate Rhythm: regular rhythm Heart sounds: S1 normal heart sound present and S2 normal heart sound present GI: Inspection: normal to inspection (Gravid soft uterus) : External Female Exam: normal external appearance Speculum Exam - Vagina: normal appearance of the vagina Speculum Exam - Cervix: normal appearance of the cervix (Cervix / FHTs reassuring. IUPC and FSE placed) H&P: Results Labs Labs: Short CBC 03/15/25 Range/Units 08:17 WBC 11.7 H (4.5-10.0) K/mm3 Hgb 11.7 L (12.0-15.0) g/dL Hct 36.0 L (37.0-47.0) % Plt Count 290 (150-375) k/mm3 Assessment and Plan Assessment and plan (1) Term : Code(s): Z34.90 - Encounter for supervision of normal , unspecified, unspecified trimester Status: Acute (2) Spontaneous rupture of membranes: Status: Acute Plan Pitocin has been placed. Spontaneous vaginal expected. She is an epidural candidate
[2025-03-15] MEDS: ACETAMINOPHEN 325 MG TABLET 650 MG PO (15:38)
[2025-03-15] MEDS: ONDANSETRON INJ 4 MG/2 ML VIAL IV PUSH (15:57)
[2025-03-15] MEDS: LORATADINE 10 MG TABLET PO (17:26)
[2025-03-15] MEDS: CALCIUM CARBONATE (TUMS) 500 MG (200 MG ELEMENTAL) PO (19:54)
[2025-03-15] MEDS: SODIUM CHLORIDE 0.9% IV 300 ML 600 ML I-UTERINE (19:55)
[2025-03-16] VITALS (20 sets, daily range): BP systolic 103–135; BP diastolic 42–88; PULSE 61–127; RESP 14–16; TEMP 36.1–37.3; O2SAT 96–99
[2025-03-16] MEDS: LACTATED RINGERS 1,000 ML 125 ML IV CONT (00:20)
--- NOTE | 2025-03-16 00:49 | P.PCNOB_ITS ---
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 Anterior posterior shoulder delivered spontaneously. Cord clamped and cut and passed off table given Apgars of 7 [id number] 8 [id number]. Cord blood was drawn. Placenta delivered intact spontaneously. Twenty of Pitocin placed IV to help firm the uterus. After inspecting the vagina. The vagina was noted to have a second-degree laceration which did not extend. This was closed with layered 3-0 Vicryl. Patient tolerated procedure well QBL was 62cc. All sponge, needle, instrument counts were correct. There were no immediate complications [place] Baby Date of : 03/16/25 Time of : 00:35 Gestational Age by Date: 37 Infant gender: Male presentation: vertex position: Right Occiput Anterior Placenta delivery description: Spontaneous Cord Vessel Description: 3 Vessels score one minute: 7 score five minutes: 8
[2025-03-16] MEDS: OXYTOCIN 30 UNITS/NS 500 ML 30 UNITS/500 ML BAG 125 UNITS IV CONT (01:03)
[2025-03-16] MEDS: IBUPROFEN 600 MG TABLET PO ×4 (02:41→23:10)
--- NOTE | 2025-03-16 04:13 | OBPPTRN ---
03/16/2025 at 0330. Patient transferred in wheelchair to post room #113. Support person and patient oriented to unit, room, information board, rooming in, admission packet and security measures. Patient and her significant other states verbalizes understanding.
[2025-03-16] MEDS: ACETAMINOPHEN 325 MG TABLET 650 MG PO ×4 (04:46→23:10)
[2025-03-16] MEDS: MULTIVIT/MIN/PREN/FOL AC/IRON TABLET 1 TAB PO (09:37)
--- NOTE | 2025-03-16 10:07 | WPDANLDPN2 ---
Anes-Prog Note L&D Date/Time: 03/16/25 10:07 Comfortable throughout: labor and delivery Neuraxial method: epidural Epidural/Spinal procedure site: clean & non-tender Neuro status: Neuro function grossly intact. Cardiovascular status: normal Respiratory status: normal Airway patency: baseline Mental status: baseline Post-Op hydration status: normal Vital Signs: Last Vital Signs Temp 36.8 C 03/16/25 07:11 Pulse 64 03/16/25 07:11 Resp 14 03/16/25 07:11 BP 105/52 L 03/16/25 07:11 Pulse Ox 99 03/16/25 07:11 O2 Del Method Room Air 03/15/25 08:23 Pain score (VAS): 06/06 I/O: Intake & Output 03/15/25 03/16/25 03/16/25 23:59 07:59 15:59 Intake Total 990 1529.6 100 Output Total 600 212 Balance 390 1317.6 100 Post-procedural complaints: none Patient feedback: Patient satisfied with anesthetic care.
[2025-03-16] MEDS: WITCH HAZEL 40 PADS 1 PAD TOPICAL (17:03)
[2025-03-17] MEDS: IBUPROFEN 600 MG TABLET PO (05:12)
[2025-03-17] MEDS: ACETAMINOPHEN 325 MG TABLET 650 MG PO (05:13)
[2025-03-17 05:33] LABS: Hematocrit 32.6 % (37.0-47.0); Hemoglobin 10.5 g/dL (12.0-15.0)
--- NOTE | 2025-03-17 07:50 | P.PNOB_ITS ---
OB - PN: Subj Subjective Date/time seen: 03/17/25 07:50 Patient comments: no complaints and pain well controlled baby status: doing well OB - PN: Obj Data Labs 03/17/25 05:12 Labs: Laboratory Results - last 24 hr 03/17/25 05:12 Hgb 10.5 L Hct 32.6 L OB - PN A/P Plan day: 1 Plan: routine care, discharge home, follow up 6 weeks and other (plans oc's) Time Spent With Patient Time: Total time spent is greater than 50% in coordination of care (as documented) at patient's floor/unit and/or counseling patient: Exam 2 : Bimanual exam- vagina & uterus: other (Uterus firm, nt @U)
--- NOTE | 2025-03-17 07:51 | P.DS_ITS ---
DS: Admitting Diagnosis Discharge Date 03/17/25 Admitting Diagnosis IUP 37 2/7 SROM in labor DS: Discharge Diagnosis Discharge Diagnosis (1) (normal spontaneous vaginal delivery): Code(s): O80 - Encounter for full-term uncomplicated delivery Status: Acute OB - DS: Summary OB Procedures : Ultrasound OB Procedures Intrapartum: Spontaneous Vag Delivery OB Procedures: : None Peripartum Data Infant Delivery Method: Natural Vaginal Laceration Description: Perineal - 2nd Degree Episiotomy description: None complications: none Status at Discharge Functional status at discharge: independent ambulation Overall status at discharge: patient is progressing back to baseline Time Spent with Patient Time attestation: Total time spent providing and/or coordinating discharge services: DS: Data Data Completed and Pending Labs on day of discharge: Labs from last 24 hours 03/17/25 05:12 Hgb 10.5 L Hct 32.6 L Discharge Plan Discharge Attending physician on discharge: Jana Tavera Discharging Clinician: Jana Tavera Anticipated Discharge Date/Time: 03/17/25 07:51 Patient Disposition: Home Activity: may shower and pelvic rest Diet: regular Patient Instructions: Antibiotic Form Patient Language: Sami Stand Alone Forms: General Discharge Information Follow-up/Referrals: Jana Tavera MD [Physician, BOILER COVERER HELPER] - 6 Weeks Discharge Medications: New norethindrone (contraceptive) 0.35 mg tablet 0.35 mg PO DAILY Qty: 84 3RF Continued cetirizine [24Hour Allergy] 10 mg tablet 10 mg PO .nightly PRN (Reason: allergy symptoms) calcium phos,dibas-vitamin D3 77-400 mg-unit tablet 1 tablet PO DAILY PNV 430-noyd-drlmpd-dha 90 mg iron- 1 mg-200 mg capsule 1 cap PO DAILY Discontinued aspirin [Adult Aspirin Regimen] 81 mg tablet,delayed release (DR/EC) 81 mg PO DAILY Date of admission: 03/15/25 07:19 Primary Care Provider: UNKNOWN,DOCTOR Admitting Provider: Jana Tavera Attending physician on admission: Jana Tavera Condition: Stable
[2025-03-17 08:30] VITALS: BP 134/67; PULSE 93; RESP 18; TEMP 36.9; O2SAT 100
[2025-03-17] MEDS: MULTIVIT/MIN/PREN/FOL AC/IRON TABLET 1 TAB PO (09:39)
[2025-03-17] MEDS: DOCUSATE SODIUM 100 MG CAPSULE PO (09:41)
[2025-03-17] MEDS: MEASLES,MUMPS,RUBELLA VACCINE 0.5 ML VIAL SUB-Q (10:14)
[2025-03-18 11:26] VITALS: BP 132/69; PULSE 87; RESP 18; TEMP 36.9; O2SAT 100
== END 2025-03-17 12:22 | disposition home or self-care (01) | DRG 807 ==
LOC: ANHLDR 12:24 → ANHOBPP 03-16 08:15
PROVIDERS: Admitting Provider Obstetrics & Gynecology; Visit Provider Obstetrics & Gynecology Gynecology
DX: O70.1 Second degree perineal laceration during delivery (principal); Z37.0 Single live birth; Z3A.37 37 weeks gestation of pregnancy
CPT/HCPCS: 36415; 84112; 85014; 85018; 85025; 86593; 86703; 86850; 86900; 86901; 90710; A9270; G0432; J2405; J2590; J2795; J7030; J7120

== ENCOUNTER 2025-03-22 17:44 | Emergency (ER) | payer BC, SELFPAY ==
--- NOTE | ~2025-03-22 | US_ITS ---
EXAMINATION: US pelvic complete, 03/22/2025 18:10 CDT HISTORY: post bleeding w/ clots, r/o RPOC Comparison: None Technique: Mistry-scale and color Doppler images were obtained. Findings: Uterus: Uterus anteverted 814.2 x 7.9 x 9.1 cm. . The endometrium is thickened measuring 2.4 cm with a heterogeneous appearance and areas of increased flow. Right Ovary:Right ovary not identified. Left Ovary: Left ovary not identified. Free Fluid: None Impression: Findings are concerning for retained products of conception Reviewed, dictated and finalized at location P. Impression: Findings are concerning for retained products of conception
[2025-03-22 17:48] VITALS: BP 135/74; PULSE 87; RESP 16; TEMP 36.4; O2SAT 100
[2025-03-22 18:20] LABS: Hematocrit 37.8 % (37.0-47.0); Hemoglobin 11.7 g/dL (12.0-15.0); Immature Granulocyte Percent A 1.1 % (0-0.5); Lymphocytes Absolute Auto 3.54 K/mm3 (0.9-3.2); Mean Corpuscular HGB Conc 31.0 g/dl (32-36); Mean Corpuscular Hemoglobin 26.7 pg (26-34); Mean Corpuscular Volume 86.1 fl (80-100); Nucleated Red Blood Cells Absolute Auto 0.000 K/mm3 (0.0-0.012); Nucleated Red Blood Cells Perc 0.0 % (0.0-0.2); Platelet Count Result 467 k/mm3 (150-375); Red Blood Count 4.39 M/mm3 (4.2-5.4); White Blood Count 14.0 K/mm3 (4.5-10.0)
--- OUTSIDE RECORDS SUMMARY | 2025-03-22 18:23 | XMS_ITS | Clinical Summary ---
Author Organization [facility] Address [address] [place] [id number] Phone Care Team Providers Care Industrial Technologist Name Role Phone Jana Tavera MD Unavailable [phone] Rylie Valle NP Primary Care Provider Allergies Active Allergy Reactions Criticality Noted Date [...] under the skin every 7 days Active dextroamphetamine -amphetamine XR (ADDERALL XR) 25 mg 24 hr capsuleIndication s:Attention deficit hyperactivity disorder (ADHD), combined type Take 1 capsule (25 mg total) by mouth every morning 30 capsule 5 Active Additional Information Patient not taking.Reported on 03/11/2025 clobetasoL (TEMOVATE) 0.05 % external solutionIndicatio ns:Psoriasis, unspecified Apply topically daily as needed (psoriasis) 50 mL 3 5 Active Additional Information Patient not taking.Reported on 03/11/2025 triamcinolone (KENALOG) 0.1 % creamIndications: Psoriasis, unspecified APPLY TOPICALLY TO THE AFFECTED AREA 1 TO 2 TIMES DAILY NEEDED 15 g 3 Active Additional Information Patient not taking.Reported on 03/11/2025 busPIRone (BUSPAR) 15 mg tabletIndications :Generalized anxiety disorder Take 1 tablet (15 mg total) by mouth daily as needed (Anxiety) 90 tablet 3 5 Active Additional Information Patient not taking.Reported on 03/11/2025 valACYclovir (VALTREX) 1 gram tabletIndications :Recurrent cold sores TAKE 2 TABLETS(2000 MG) BY MOUTH TWICE DAILY FOR 1 DAY 4 tablet 3 Active Additional Information Patient not taking.Reported on 03/11/2025 cetirizine (ZyrTEC) 5 mg tablet Take 1 tablet (5 mg total) by mouth daily Active cholecalciferol (VITAMIN D-3) 2000 unit tablet Take 3,000 tablets (6,000,000 Units total) by mouth daily Active Active Problems Problem Noted Date Diagnosed Date Psoriasis, unspecified 07/11/2024 Assessment & Plan (03/11/2025 3:02 PM CDT): -chronic, stable -Patient has discontinued her clobetasol and triamcinolone since she is currently -Patient was taking clobetasol 0.05% external solution daily as needed and triamcinolone 0.1% cream 1-2 times daily as needed -Advised patient that this should be fine to take while , but I recommend avoiding daily use and also reaching out to her OB and child's bush regenerator if breast-feeding to determine if she can restart this after delivery -Follow up in 6 months or sooner as needed Assessment & Plan (07/11/2024 7:59 AM BUILDING ENGINEER): -chronic, stable -Discussed/ordered labs -continue on clobetasol 0.05% daily as needed on the scalp and triamcinolone 0.1% 1-2 times daily as needed it on the hands and elbows -Patient is no longer seeing Dermatology 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..] pharmacy). Assessment & Plan (06/13/2023 9:06 AM BUILDING ENGINEER): -chronic, improving, but not at goal -Discussed/ordered [...] months Assessment & Plan (07/06/2022 8:20 AM BUILDING ENGINEER): HPI: Condition is stable A&P: Discussed/ordered labs, encouraged healthy, low carbohydrate lifestyle and at least 150min/week of exercise, continue on adderall XR 20 mg daily. Polycystic ovarian syndrome 07/06/2022 Assessment & Plan (07/11/2024 7:50 AM BUILDING ENGINEER): -chronic, stable -Continue seeing oil driller Dr. Tavera. -reports she stopped taking the metformin and junel birthcontrol Assessment & Plan (06/13/2023 9:08 AM BUILDING ENGINEER): -chronic, Condition is stable -Continue seeing oil driller Dr. Tavera. -Continue on metformin XR 500 [...] a prior Auth to be done Following oil driller Dr. Tavera-encouraged to follow-up as scheduled Continue on metformin XR 500 mg b.i.d. and Junel control Assessment & Plan (07/06/2022 8:39 AM BUILDING ENGINEER): HPI: Condition is stable A&P: Continue seeing oil driller Dr. Tavera. Continue on metformin XR 500 mg twice daily, Liraglutide 3 mg daily, and control. Vitamin B12 deficiency 07/06/2022 Assessment & Plan (07/11/2024 7:59 AM BUILDING ENGINEER): -chronic, unknown, no data to review at this time to make an evaluation -Discussed/ordered labs -continue on vitamin daily Assessment & Plan (06/13/2023 9:08 AM BUILDING ENGINEER): -chronic, Condition is unknown, no data to review at this time to make an evaluation -Discussed/ordered labs -continue on vitamin b12 1,000 mcg daily. Assessment & Plan (07/06/2022 8:40 AM BUILDING ENGINEER): HPI: Condition is unknown, no data to review at this time to make an evaluation A&P: Discussed/ordered labs, encouraged healthy, low carbohydrate lifestyle and at least 150min/week of exercise, continue on vitamin b12 1,000 mcg daily. Skin mole 02/13/2022 Overview (02/13/2022): multiple skin moles with a new right trunk mole. see dermatology. monthly home skin exam Generalized anxiety disorder 01/13/2022 Assessment & Plan (03/11/2025 3:02 PM CDT): -chronic, stable -Patient has discontinued her buspirone since she is currently -Patient was taking buspirone 15 mg daily as needed -Advised patient that this should be fine to take while , however I recommend reaching out to her OB and child's bush regenerator if breast-feeding to determine if she can restart this after delivery -Follow up in 6 months or sooner as needed Patient reiterated no suicidal thoughts at this time; take medication as directed; contact 911 and go to the ER if becomes suicidal; discussed side effects of medication with patient; encouraged healthy diet and exericise; encouraged patient to see a counselor Assessment & Plan (07/11/2024 7:09 AM BUILDING ENGINEER): -chronic, stable -continue on buspirone 7.5 mg [...] counselor Assessment & Plan (07/06/2022 8:19 AM BUILDING ENGINEER): Patient reiterated no suicidal thoughts at this [...] daily and adderall XR 20 mg daily. Class 3 severe obesity witho ut serious comorbidity with body mass index (BMI) of 40.0 to 44.9 in adult 07/29/2019 Assessment & Plan (03/11/2025 3:02 PM CDT): -chronic, stable goal BMI <30 Healthy, high-protein, lower carbohydrate, lower fat lifestyle and exercise for 150min/week recommended Recommend tracking everything you put in your mouth on an donna like Socialmoth -Patient was taking tirzepatide injections 2.5 mg weekly with [employer], but discontinued it since she is currently -Advised patient to reach out to her OB and child's bush regenerator if breast- feeding to determine if she can restart this. If not breast-feeding, I recommend waiting at least 6 weeks to restart this Hand Measurements: A fist or cupped hand [...] an actual measuring cup. Assessment & Plan (07/11/2024 7:48 AM BUILDING ENGINEER): -chronic, stable goal BMI <30 Healthy, high-protein, lower carbohydrate, lower fat lifestyle and exercise for 150min/week recommended Recommend tracking everything you put in your mouth on an donna like Socialmoth -Patient has been taking tirzepatide injections 2.5 mg weekly with [employer]. Hand Measurements: A fist or cupped hand [...] in your mouth on an donna like [employer] -Patient has been taking tirzepatide injections 2.5 mg weekly with [employer]. Hand Measurements: A fist or cupped hand [...] in your mouth on an donna like Socialmoth -Patient has been taking tirzepatide injections 2.5 mg weekly with a [employer] spa. Patient tried a 5 mg dosage, [...] in your mouth on an donna like Socialmoth -Patient has been taking tirzepatide injections 2.5 mg weekly with a [employer] spa Hand Measurements: A fist or cupped [...] cup. Assessment & Plan (06/13/2023 9:06 AM BUILDING ENGINEER): HPI: Condition is not at/near goal goal BMI <30 A&P: Healthy, high-protein, lower carbohydrate, lower fat lifestyle and exercise for 150min/week recommended Recommend tracking everything you put in your mouth on an donna like Socialmoth -start on Wegovy 0.25 mg injection weekly [...] & Plan (02/02/2023 8:05 AM CDT): Chronic jproddc-[id number]-az reported by patient she had a 5 lb weight gain Has not started Saxenda yet, patient states she is waiting on prior authorization to see if her insurance will cover Recommend heart healthy rnso-fvd-fpe, low-calorie, low carb Portion control would be beneficial Encouraged to increase activity to 30 min/day, 150 min/week Recommend keeping a food journal Assessment & Plan (11/14/2022 2:57 PM CDT): HPI: Condition is not at/near goal goal BMI <30 A&P: Healthy, high-protein, lower carbohydrate, lower fat lifestyle and exercise for 150min/week recommended Recommend tracking everything you put in your mouth on an donna like Socialmoth -continue on liraglutide 3 mg daily injection. [...] cup. Assessment & Plan (07/06/2022 8:38 AM BUILDING ENGINEER): HPI: Condition is not at/near goal goal BMI <30 A&P: Healthy, high-protein, lower carbohydrate, lower fat lifestyle and exercise for 150min/week recommended Recommend tracking everything you put in your mouth on an donna like [employer] Patient uses liraglutide 3 mg daily injection. [...] deficiency Assessment & Plan (07/11/2024 7:59 AM BUILDING ENGINEER): -chronic, unknown, no data to review at this time to make an evaluation -Discussed/ordered labs -continue on vitamin daily Assessment & Plan (06/13/2023 9:08 AM BUILDING ENGINEER): -chronic, Condition is unknown, no data to review at this time to make an evaluation -Discussed/ordered labs -continue on vitamin D 2000 units daily Assessment & Plan (07/06/2022 8:38 AM BUILDING ENGINEER): HPI: Condition is unknown, no data to review at this time to make an evaluation A&P: Discussed/ordered labs, encouraged healthy, low carbohydrate lifestyle and at least 150min/week of exercise, continue on vitamin D2 2000 units daily Estimated Date of Delivery Comme nts Yes 04/04/2025 Resolved Problems Problem Noted Date Diagnosed Date Resolved Date Dizzy 01/16/2024 03/11/2025 Assessment & Plan (03/10/2024 2:23 PM CDT): [...] enough calories -follow up if this worsens Attention deficit disorder 01/13/2022 0 02/13/2022 Morbid [...] Encounters Date Type Department Care Team Description 03/11/2025 2:30 PM CDT Office Visit [facility] [place] [address] [place] [address] Rylie Valle NP Attention deficit hyperactivity disorder (ADHD), combined type (Primary Dx); Generalized anxiety disorder; Psoriasis, unspecified; Class 3 severe obesity without serious comorbidity with body mass index (BMI) of 40.0 to 44.9 in adult, unspecified obesity type 02/04/2025 2:00 PM CDT Ancillary Procedure [facility] [address] [facility] [address] [place] [address] Maternal care for excessive growth, third [...] Preser vative Free, Intramuscular 03/10/2024 Influenza, Unspecified 03/06/2025,03/28/2020 Meningococcal ACWY, Unspecified 01/15/2007 Meningococcal Conjugate (Menveo) 12/15/2011 Moderna SARS-CoV-2 Monovalen t Vaccination (12+ YRS) 04/03/2021,03/29/2021 Polio, Unspecified 12/17/1998, 6,04/28/1994,02/24 Tdap 02/18/2025,06/03/2019,01/15/2007 Varicella 2007 Surgical History Surgery Date Site/Laterality [...] Not Answered Alcohol Use Standard Drinks/Week Comments Not Currently 0 (1 standard drink = 0.6 oz pur e alcohol) PHQ-2 Answer Date Recorded PHQ-2 Total Score (If total score is 3 or more points, staff should administer the PHQ-9) 0 03/11/2025 AUDIT-C Answer Date Recorded Q1: How often do you have a drink containing alcohol? Never 03/11/2025 Q2: How many drinks containi ng alcohol do you have on a typical day when you are drinking? Patient does not drink Q3: How often do you have si x or more drinks on one occasion? Never 03/11/2025 Estimated Date of Delivery Comme nts Yes 04/04/2025 Sex and Gender Information Value Date Recorded Sex Assigned at Not on file Legal Sex Female 12:51 AM BUILDING ENGINEER Gender Identity Not on file Sexual Orientation [...] Sign Reading Time Taken Comments Blood Pressure 106/70 03/11/2025 2:31 PM CDT Pulse 84 03/11/2025 2:31 PM CDT Temperature 36.9 C (98.4 F) 03/11/2025 2:31 PM CDT Respiratory Rate 16 03/11/2025 2:31 PM CDT Oxygen Saturation 95% 03/11/2025 2:31 PM CDT Inhaled Oxygen Concentration - - Weight 125.4 kg (276 lb 6.4 oz) 03/11/2025 2:31 PM CDT Height 171.2 cm (5' 7.4) 03/11/2025 2:31 PM CDT Body Mass Index 42.78 03/11/2025 2:31 PM CDT Plan of Treatment Health Maintenance Due Date Last Done Comments Cervical Cancer Screening 1995 Hepatitis C Screening 1995 Covid-19 Vaccine ( season) 2025 04/03/2021, 03/29/2021, 07/30/2020 Regular Well Visit/Exam 18-64 07/11/2025 07/11/2024, 11/14/2022, 08/10/2021, Additional history exists Depression Screening 03/11/2026 03/11/2025, 07/11/2024, 03/10/2024, Additional history exists DTaP/Tdap/Td Vaccine (9 - Td or Tdap) 02/18/2035 02/18/2025, 06/03/2019, 01/15/2007, Additional history exists Hepatitis B Screening Completed 07/15/1994 , 01/27/1994, 1993 Varicella Vaccines Discontinued 2007 HPV Vaccines Completed 12/15/2011, 02/25, 12/15/2010 Influenza Vaccine Completed 03/06/2025, , 06/13/2023, Additional history exists Pneumococcal vaccine <65 Aged Out No longer [...] by Fan Wolf M.D. CH: Report ID: [id number] Reading Location: [place] [address] Procedure Note Fan Wolf MD - 02/11/2025 [...] Fan Wolf M.D. CH: JUSTIN Report ID: [id number] Reading Location: [id number] us Isabella Godinez NP IMG OB US PROCEDURES Final Result from Last 3 Months Insurance [facility] H[facility]/PPO Address: [address] [address] [place] [address] [facility] HMO/PPO Address: [address] [address] [place] [address] ANTHEM ACCESS Member Subscriber Plan / Payer (Ef fective 2024-Present) Name:CalderonCobyKelly R Relation to Subscriber:Spouse Name:CalderonBryn Date of :1993 (Home) Address: [address] [place] [address] Payer ID:[id number] (NAIC) Type:BC ALLIANCE Address: [facility] [id number] [place] [id number] Care Teams Industrial Technologist Relationship Specialty Start Date End Date Rylie Valle NP [address] [place] [address] PCP - General Family Medicine 07/06/22 Jana Tavera MD [address] [place] [address] Referring Physician Gynecology 06/03/19
[2025-03-22 18:35] LABS: Alanine Aminotransferase 32 U/L (6-35); Albumin Level 4.4 g/dL (3.5-5.1); Alkaline Phosphatase 138 U/L (38-126); Anion Gap 10 mmol/L (4-12); Aspartate Amino Transferase 44 U/L (14-36); Bilirubin,Total 0.4 mg/dL (0.2-1.3); Blood Urea Nitrogen 20 mg/dL (7-17); Calcium 9.6 mg/dL (8.4-10.2); Carbon Dioxide 25 mmol/L (22-30); Chloride 104 mmol/L (98-107); Estimated CRCL calculation 116 ml/min; Estimated Glomerular Filt Rate > 60; Glucose 84 mg/dL (65-110); Potassium 3.8 mmol/L (3.4-5.0); Sodium 139 mmol/L (137-145); Total Protein 8.2 g/dL (6.3-8.2)
[2025-03-22 18:36] LABS: INR 0.9; Prothrombin Time 12.3 Seconds (11.1-14.7)
[2025-03-22 18:37] LABS: Partial Thromboplastin Time 28.3 Seconds (22.3-36.8)
--- NOTE | 2025-03-22 19:02 | ED.PREGNANCY ---
HPI - General Chief complaint: Vaginal Bleeding Stated complaint: , bleeding with clots Time Seen by Provider: 03/22/25 17:49 Source: patient Mode of arrival: ambulatory Limitations: no limitations History of Present Illness HPI Narrative: Patient is a 29-year-old female who presents the ED with report of vaginal bleeding. Patient reports she had a normal vaginal delivery on 03/16/25. Denied having any complications with or delivery. Typically sees Dr. Tavera, but delivered with Dr. Yasmany Braga. States her bleeding has been very mild and improving over the past few days. Today while eating dinner, she felt a gush of blood and noticed several large blood clots. She contacted the OBGYN office and was referred to the ED for further evaluation. Reports slight lower abdominal cramping, denies severe pain. Denies fever, nausea, vomiting. Related Data Home Medications ?Medication ?Instructions ?Recorded ?Confirmed ?Last Taken ?Type calcium phosphate,dibasic 77 1 tablet PO DAILY 03/15/25 03/16/25 03/14/25 History mg-vitamin D3 400 unit tablet cetirizine 10 mg tablet (24Hour 10 mg PO .nightly PRN allergy 03/15/25 03/15/25 03/14/25 History Allergy) symptoms vitamins no.102-iron 90 1 cap PO DAILY 03/15/25 03/15/25 03/14/25 History mg-folate 1 mg-dha 200 mg capsule Allergies Allergy/AdvReac Type Severity Reaction Status Date / Time amoxicillin Allergy Mild Rash Verified 03/15/25 08:25 codeine Allergy Unknown Dyspnea / Verified 03/15/25 08:25 SOB Review of Systems Review of Systems: All systems reviewed & are unremarkable except as noted in HPI. All systems reviewed & are unremarkable except as noted in HPI and below PMFSH Past Medical History Medical History ADHD Anxiety Psoriasis PCOS (polycystic ovarian syndrome) Social History Social History Smoking status: Never smoker Substance use: never Do You Feel Safe in your Home?: Yes Lack of Transportation: No Lack of Food: Never True Current Housing: I Have Housing Concerned About Future Housing: No Difficulty Paying Gas/Electric Bills: No Difficulty Paying for Meds: No Currently Unemployed: No Education: Trade/Vocational Certificate Difficulty w/ Childcare or Family Care: No Spiritual care concerns: No Exam Narrative: GENERAL: Well appearing, obese with BMI of 39.0, non-toxic, in no acute distress. HEAD: Normocephalic, atraumatic. RESPIRATORY: Airway patent, respirations nonlabored. Clear to auscultation bilaterally, no rales, rhonchi, wheezing. CARDIOVASCULAR: Regular rate and rhythm without murmurs, rubs, or gallops. ABDOMINAL: Soft, no significant focal tenderness throughout lower abdomen, nondistended. Normoactive BS. MUSCULOSKELETAL: Moves all extremities. No gross deformities. SKIN: Warm, dry, normal color. NEURO: A&O X3. Speech clear. Steady gait. No ataxic movements. PSYCHIATRIC: Appropriate mood and affect. Normal interaction. Course Vital Signs Vital signs: Vital Signs Temperature 97.5 F L 03/22/25 17:48 Pulse Rate 87 03/22/25 17:48 Respiratory Rate 16 03/22/25 17:48 Blood Pressure 135/74 03/22/25 17:48 Pulse Oximetry 100 03/22/25 17:48 Oxygen Delivery Room Air 03/22/25 17:48 Temperature 97.5 F L 03/22/25 17:48 Pulse Rate 80 03/22/25 19:35 Respiratory Rate 16 03/22/25 19:35 Blood Pressure 141/75 H 03/22/25 19:35 Pulse Oximetry 99 03/22/25 19:35 Oxygen Delivery Room Air 03/22/25 17:48 MDM - OB/Uterine Contractions MDM Narrative Medical decision making narrative: Patient presented to ED with abnormal vaginal bleeding status post vaginal delivery 03/16. Bleeding became heavy with clots tonight. Reports mild cramping. Otherwise unremarkable delivery/. Vital stable upon arrival. No evidence of hemodynamic instability. She does report that bleeding has slowed significantly, but she is still passing some clots. White count 14.0. Hemoglobin 11.7. Appears consistent with pre delivery records. Per records, blood type is A positive. Pelvic ultrasound was obtained and showing findings concerning for retained products of conception. Discussed case with Dr. Yasmany Braga OBCITLALIN, advised can take for D&C or start patient on oral Methergine in hopes that she will pass remaining products. Patient did eat dinner just prior to arrival. Not a candidate for surgery at this time. Advised to start on methergine now, 0.2mg oral, 4 doses q6h, and f/u in office tomorrow. Discussed these recommendations with patient. She is in agreement with plan. Did discuss NPO status after midnight in preparation for possible surgery. Advised to call OBGYN office 1st thing in the morning. Advised to monitor bleeding very closely, given very strict return precautions. She is in agreement with plan, discharged in stable condition. Medical Records Attestation: I reviewed the patient's medical records. Lab Data Attestation: I reviewed the patient's lab results. 03/22/25 18:09 03/22/25 18:09 Labs: Lab Results 03/22/25 Range/Units 18:09 WBC 14.0 H (4.5-10.0) K/mm3 RBC 4.39 (4.2-5.4) M/mm3 Hgb 11.7 L (12.0-15.0) g/dL Hct 37.8 (37.0-47.0) % MCV 86.1 (80-100) fl MCH 26.7 (26-34) pg MCHC 31.0 L (32-36) g/dl RDW 13.7 (11.5-14.5) % Plt Count 467 H D (150-375) k/mm3 MPV 10.0 (7.4-10.4) fl Immature Gran % (Auto) 1.1 H (0-0.5) % Neut % (Auto) 62.9 (45.5-73.1) % Lymph % (Auto) 25.3 (18.3-44.2) % Valencia % (Auto) 6.5 (2.6-8.5) % Eos % (Auto) 3.6 (0-4.4) % Baso % (Auto) 0.6 (0.2-1.2) % Lymph # (Auto) 3.54 H (0.9-3.2) K/mm3 Valencia # (Auto) 0.9 H (0.1-0.6) K/mm3 Eos # (Auto) 0.5 H (0-0.3) K/mm3 Baso # (Auto) 0.1 (0.0-0.1) K/mm3 Abs Immat Gran (auto) 0.15 H (0.00-0.031) K/mm3 Absolute Neuts (auto) 8.8 H (1.3-6.7) K/mm3 Absolute Nucleated RBC 0.000 (0.0-0.012) K/mm3 Nucleated RBC % 0.0 (0.0-0.2) % PT 12.3 (11.1-14.7) Seconds INR 0.9 APTT 28.3 (22.3-36.8) Seconds Sodium 139 (137-145) mmol/L Potassium 3.8 (3.4-5.0) mmol/L Chloride 104 (98-107) mmol/L Carbon Dioxide 25 (22-30) mmol/L Anion Gap 10 (4-12) mmol/L BUN 20 H D (7-17) mg/dL Creatinine 0.85 (0.7-1.0) mg/dL Estim Creat Clear Calc 116 ml/min Estimated GFR > 60 (59 - ) Glucose 84 (65-110) mg/dL Calcium 9.6 (8.4-10.2) mg/dL Total Bilirubin 0.4 (0.2-1.3) mg/dL AST 44 H (14-36) U/L ALT 32 (6-35) U/L Alkaline Phosphatase 138 H (38-126) U/L Total Protein 8.2 (6.3-8.2) g/dL Albumin 4.4 (3.5-5.1) g/dL Discharge Plan Discharge Clinical Impression: Retained products of conception, Patient Disposition: Home Condition: Stable Instructions: Antibiotic Form, Dilation and Curettage (DC) Additional Instructions: Take Methergine tablet every [address] Yasmany Braga or Dr. Tavera's office first thing tomorrow morning to make appointment to be seen in office and determine need for D&C. Do not eat or drink after midnight in preparation for possible surgery. Continue to monitor bleeding. Return to the ED if you experience worsening or severe bleeding, severe pain, feeling dizzy or lightheaded, passing out, unable to keep down food or drink, or any other symptoms of concern. Patient Language: Croatian Prescriptions: New methylergonovine 0.2 mg tablet 0.2 mg PO Q6H Qty: 4 0RF No Action cetirizine [24Hour Allergy] 10 mg tablet 10 mg PO .nightly PRN (Reason: allergy symptoms) calcium phos,dibas-vitamin D3 77-400 mg-unit tablet 1 tablet PO DAILY PNV [id number] 90 mg iron- 1 mg-200 mg capsule 1 cap PO DAILY norethindrone (contraceptive) 0.35 mg tablet 0.35 mg PO DAILY Qty: 84 3RF Follow-up/Referrals: James Lazar MD [Physician, PETROLEUM REFINING EQUIPMENT OPERATOR] Referral Note: Jana Martinez MD [Physician, PETROLEUM REFINING EQUIPMENT OPERATOR] PHYSICIAN NOT ON STAFF,NONSTAFF [Primary Care Provider] Time of Disposition: 19:33
[2025-03-22] MEDS: METHYLERGONOVINE MALEATE 0.2 MG TABLET PO (19:31)
[2025-03-22 19:35] VITALS: BP 141/75; PULSE 80; RESP 16; O2SAT 99
== END 2025-03-22 20:00 | disposition home or self-care (01) ==
PROVIDERS: Emergency Provider Physician Assistant
DX: O72.2 Delayed and secondary postpartum hemorrhage (principal); Z37.0 Single live birth; F90.9 Attention-deficit hyperactivity disorder, unspecified type; F41.9 Anxiety disorder, unspecified
CPT/HCPCS: 36415; 76856; 80053; 85025; 85610; 85730; 99284; A9270